=== PATIENT | male | born 1955 | race Caucasian/White ===

== ENCOUNTER 2020-12-03 11:04 | Observation (INO) | payer MEDICARE, SELFPAY ==
[2020-12-03] VITALS (10 sets, daily range): BP systolic 118–164; BP diastolic 65–98; PULSE 78–89; RESP 16–20; TEMP 36.3–36.6; O2SAT 95–100
--- NOTE | ~2020-12-03 | XR_ITS ---
EXAMINATION: XR chest 1V portable DATE: 12/03/2020 13:39 INDICATION: Seizure. Confusion TECHNIQUE: frontal view of the chest was obtained. COMPARISON: None FINDINGS: The lungs are clear with no focal airspace opacities, pulmonary edema, pleural effusion or pneumothor ax. The cardiomediastinal silhouette is normal. Mild thoracic spondylosis. Calcified splenic nodule c onsistent with old granulomatous disease. IMPRESSION: 1. No acute cardiopulmonary disease. Reviewed, dictated and finalized at location A. SERVICE ADVISOR
--- NOTE | ~2020-12-03 | CT_ITS ---
EXAMINATION: CT brain wo con DATE: 12/03/2020 13:55 INDICATION: Seizure TECHNIQUE: Computed tomography (CT) of the head was performed without intravenous contrast. Sagittal and coronal reconstructions were performed. The mA was adjusted according to patient size. Iterative reconstruction technique was employed. The dose-length product was 1362.00 mGy-cm. COMPARISON: head CT dated 01/11/2012 FINDINGS: No acute intracranial hemorrhage, acute infarction or abnormal extra axial fluid collection. Ventricl es are normal and symmetric. No mass/mass effect. Mild intracranial calcified cerebral atherosclerosi s is noted. The orbits, paranasal sinuses and mastoid air cells are normal. IMPRESSION: 1. No acute intracranial process. Reviewed, dictated and finalized at location A. EILLANCE AGENT
--- NOTE | ~2020-12-03 | US_ITS ---
EXAMINATION: US right upper quadrant DATE: 12/04/2020 11:06 INDICATION: Elevated liver enzymes. TECHNIQUE: Multiple grayscale and Doppler ultrasound images of the abdomen were obtained. COMPARISON: CT abdomen and pelvis dated 07/26/2017 FINDINGS: The region of the pancreas is obscured. Liver has normal contour, with a smooth surface. There is inc reased parenchymal echogenicity and coarsened echotexture consistent with diffuse hepatic steatosis. No liver lesion identified. No intrahepatic biliary duct dilation suspected. Portal venous flow was seen in the hepatopetal, normal direction and has normal Doppler waveform. The gallbladder is normal in appearance. There is no cholelithiasis. The common bile duct measures 3 mm, which is normal. Sono graphic Mcrae sign was reported as negative by the box order person.Visualized proximal inferior vena cav a is normal. The visualized portion of the right kidney demonstrate normal contour and echogenicity w ith no hydronephrosis. IMPRESSION: 1. Diffuse hepatic steatosis. Reviewed, dictated and finalized at location A. BOARD ERECTOR
--- NOTE | 2020-12-03 11:14 | ECG_ITS ---
Measurements Intervals [place] Rate: 85 P: 29 MA: 165 QRS: 46 QRSD: 104 T: 37 QT: 389 QTc: 464 Interpretive Statements SINUS RHYTHM EARLY PRECORDIAL R/S TRANSITION MINIMAL Q WAVES- INFERIOR LEADS BASELINE ARTIFACT- I, III, AVF, V1 BORDERLINE ECG Electronically Signed On 12-03-2020 16:03:57 [employer] by Blair Hutson D.O.
--- NOTE | 2020-12-03 11:22 | PC.NURSE ---
INFORMED PT NEED URINE. PT STATES UNABLE TO VOID AT THIS TIME, STATES HE JUST URINATED. PT STATES BUT I CAN ORGASM. I CAN ORGASM WITHOUT GETTING AN ERECTION. REDIRECTED PT BEHAVIOR. REINFORCED NEED FOR URINE. PT VERBALIZES UNDERSTANDING. PT WILL TRY IN 10 MINUTES.
[2020-12-03 11:23] LABS: Glucose Point of Care 121 (65-105)
[2020-12-03 11:28] LABS: Basophils Absolute Auto 0.1 K/mm3 (0.0-0.1); Basophils Percent Auto 0.4 % (0.2-1.2); Hematocrit 45.3 % (42.0-52.0); Hemoglobin 15.3 g/dL (14.0-18.0); Immature Granulocyte Percent A 0.9 % (0-0.5); Lymphocytes Absolute Auto 1.56 K/mm3 (0.9-3.2); Lymphocytes Percent Auto 13.8 % (18.3-44.2); Mean Corpuscular HGB Conc 33.8 g/dl (32-36); Mean Corpuscular Hemoglobin 31.7 pg (26-34); Mean Platelet Volume 9.6 fl (7.4-10.4); Monocytes Absolute Auto 1.2 K/mm3 (0.1-0.6); Monocytes Percent Auto 10.2 % (2.6-8.5); Neutrophils Absolute Auto 8.5 K/mm3 (1.3-6.7); Neutrophils Percent Auto 74.7 % (45.5-73.1); Platelet Count Result 280 k/mm3 (150-375); Red Blood Count 4.82 M/mm3 (4.6-6.20); Red Cell Distribution Width 13.1 % (11.5-14.5); White Blood Count 11.3 K/mm3 (4.5-10.0)
[2020-12-03 11:37] LABS: INR 1.2; Prothrombin Time 15.8 Seconds (11.1-14.7)
[2020-12-03 11:41] LABS: Ammonia 80 umol/L (9-30); Ethanol < 10 mg/dL (<10)
[2020-12-03 11:53] LABS: Albumin Level 4.8 g/dL (3.5-5.1); Alkaline Phosphatase 68 U/L (38-126); Anion Gap 17 mmol/L (8-16); Aspartate Amino Transferase 152 U/L (17-59); Bilirubin,Total 0.9 mg/dL (0.2-1.3); Blood Urea Nitrogen 19 mg/dL (9-20); CRP 2.6 mg/dL (<1.0); Carbon Dioxide 15 mmol/L (22-30); Chloride 109 mmol/L (98-107); Estimated CRCL calculation 97 ml/min; Estimated Glomerular Filt Rate > 60; Glucose 123 mg/dL (75-110); Magnesium 2.9 mg/dL (1.6-2.3); Sodium 141 mmol/L (137-145)
[2020-12-03 11:57] LABS: Alanine Aminotransferase 47 U/L (4-50)
[2020-12-03 12:19] LABS: Creatine Kinase 5316 U/L (55-170)
[2020-12-03] MEDS: LORazepam INJ (*CRX) 2 MG/ML VIAL IV PUSH (12:37)
[2020-12-03] MEDS: SODIUM CHLORIDE 0.9% IV 1,000 ML 999 ML IV CONT ×2 (12:37→15:54)
--- NOTE | 2020-12-03 12:40 | ED.GENADULT ---
HPI - General Adult General Chief complaint: Neuro Symptoms/Deficit Stated complaint: neuro symptoms Time Seen by Provider: 12/03/20 11:06 Source: patient, family and EMS Mode of arrival: EMS History of Present Illness HPI narrative: patient is a 65 year old male with history bipolar , frantz who presents via EMS for evaluation of agitation and possible seizure. His states patient has not slept in 3 day. She reports he is extremely animated but he is not violent. She states today he had a seizure. Around 1030 am today, she states patient was standing up. He stopped talking and started making noises. She reports he started convulsing and when it stopped he fell backwards. His son was able to catch him before he fell to the ground. She reports he was snoring afterwards. She states patient has been off medication for bipolar for over 2 years . He was here at [facility] in 2018 for frantz . She states he stopped taking his medications shortly after that. Patient is unable to give history due to being manic. Initially he was in room by himself talking to himself. He will follow occasionaly demands. He has to be redirected to get name. Related Data Allergies Allergy/AdvReac Type Severity Reaction Status Date / Time aripiprazole Allergy Unknown Verified 07/26/17 20:57 Review of Systems Review of Systems: ROS unobtainable: Yes unobtainable due to mental status PMFSH Past Medical History Medical History (Updated 12/03/20 @ 15:37 by Marie Paz MD) Bipolar disorder, manic Family History Family History Father Family history of allergic disorder Carcinoma of colon Other Cerebrovascular accident Diabetes mellitus Social History Social History Smoking status: Never smoker Alcohol intake: current Exam Const: General: alert Other: oriented to person, anable to get straight answers HENMT: Head: normocephalic and atraumatic Face and sinus: face symmetric Mouth: Yes Normal oral and palatal mucosa present, Yes lip normal, Yes oropharynx normal and Yes moist mucous membranes Eyes: Pupils: Equal, round and reactive pupils present EOM: EOMs intact bilaterally Resp: Effort & Inspection: normal respiratory effort and no retractions Auscultation: clear to auscultation bilaterally Cardio: Rate: regular rate Rhythm: regular rhythm Heart sounds: no murmurs GI: GI Palp: Yes Soft to palpation, No Tenderness to palpation present (GI) and No Guarding due to palpation present (GI) Auscultation: normal bowel sounds Neuro: General: moves all extremities, no meningeal signs and CN's II-XI intact bilaterally Extrem: General: no pedal edema Psych: Speech and movement: Psychomotor agitation in speech present and Restless speech present Affect: Anxious affect present Thought process: Racing thoughts present Judgement: Fair judgement present (Psych) Course Reevaluation(s) Reevaluation #1: Patient presented agitate and restless. I was unable to talk to in room with patient because he started getting loud and beating on the bed. He states he has not slept in 3 days. He was given ativan 2 mg. He is sleeping. HE will wake up and answer but go back to sleep. Date: 12/03/20 Time: 15:34 Consultations Consultation #1: I Discussed with Dr. Blas that patient presents manic and had a seizure home. He agrees to consult. He states once patient wakes up can Start on zyprexa 2.5 . Date: 12/03/20 Time: 15:31 Consultation #2: I Discussed case with Alexandrea Hernandez who accepts patient to [facility]. I Discussed consultation with Alexandrea Date: 12/03/20 Time: 15:33 Vital Signs Vital signs: Vital Signs Temperature 97.9 F 12/03/20 10:47 Pulse Rate 87 12/03/20 10:47 Respiratory Rate 20 12/03/20 10:47 Blood Pressure 118/80 12/03/20 10:47 Pulse Oximetry 96 12/03/20 10:47 Temperature 97.4 F L 12/03/20 16:30 Pulse Rate 85 12/03/20 1
[2020-12-03 12:47] LABS: Lactic Acid Reflex 1.9 mmol/L (0.7-2.1)
[2020-12-03 13:44] LABS: Add Urine Microscopic? YES; Appearance Urine Cloudy (Clear); Bilirubin Urine Negative (Negative); Blood Urine 3+ (Negative); Color Urine Yellow (Yellow); Glucose Urine UA Negative (Negative); Ketones Urine 1+ mg/dL (Negative); Leukocyte Esterase Ur Negative LEU/UL (Negative); Mucus Urine Rare /lpf; Nitrate Urine Negative (Negative); Protein Urine 2+ mg/dL (Negative); Specific Grav Ur 1.025 (1.001-1.035); Urobilinogen Urine Negative mg/dL (<2.0)
[2020-12-03 13:59] LABS: Amphetamine Screen Urine Negative (Negative); Barbiturate Screen Urine Negative (Negative); Benzodiazepines Screen Urine Negative (Negative); Cannabinoid Screen Urine Positive (Negative); Cocaine Screen Urine Negative (Negative); Methadone Screen Urine Negative (Negative); Opiate Screen Urine Negative (Negative); Phencyclidine Screen Urine Negative (Negative)
[2020-12-03 14:24] LABS: Alveolar/Arterial O2 Gradient 19.7 mmHg; Base Excess ABG -6.2 mEq/l (+/-2.0); Carboxyhemoglobin 0.6 % THb (0-2.0); Device ROOM AIR; Fractional Inspired Oxygen 21 %; HCO3 ABG 18.4 mEq/l (22.0-26.0); Methemoglobin ABG 0.3 %THb (0-1.5); Modified Allen's Test Pass; Oxygen Content ABG 19.6 %vol (16.0-22.0); Oxygen Saturation ABG 96.5 % (95.0-100.0); PCO2 ABG 34.1 mmHg (35.0-45.0); PO2 ABG 89.2 mmHg (80.0-100.0); PO2 FiO2 Ratio Arterial Blood 4.25 %; Reduced Hemoglobin 4.1 %THb (0-5.0); Site Drawn RIGHT RADIAL; Total Hemoglobin 14.6 g/dL (12.0-18.0)
--- NOTE | 2020-12-03 17:15 | ADMGEN ---
This patient, Edwin Bunch, was admitted to [facility] Surg Room 322-01. Patient/family oriented to hospital policies and general routines including ID bracelet, bed and alarms, visiting hours, pain management, procedures, bathroom and other care routines, personal items, smoking policy, room service/diet, and visiting hours. Information on how to activate the Rapid Response Team has been discussed. Patient/Family are encouraged to report perceived risks to care and to ask questions if they do not understand what they are told or what they should do.
[2020-12-03] MEDS: SODIUM CHLORIDE 0.9% IV 1,000 ML 200 ML IV CONT ×2 (17:36→22:22)
--- NOTE | 2020-12-03 20:56 | PM.IMHP ---
H&P: HPI History of Present Illness Date/Time: 12/03/20 20:56 Chief Complaint: Manic episode and possible seizure Narrative: Edwin Bunch is a 65 year old male who has a history of bipolar disorder. The patient is not on any current medications. The was with the patient earlier. The patient presented with manic symptoms. A possible seizure. Patient has not slept in 3 days he has been extremely agitated but not violent. He has no history of any seizures. But approximately on 10:00 a.m. today the stated the when the patient was standing up he stop talking anion started making some noises and had some convulsions and then he stopped and fell backwards. His reported that the son caught him before he was able to fall to the ground. He was making some snoring noises afterwards. Patient has been off of his psychiatric medications for 2 years. The patient had been talking to God and been talking to people that are not there. The patient had been here at [facility] 2018 for in a manic event. The patient stop taking his medication shortly after that. I was not able to get any information from the patient as he has been medicated with Ativan. He had been talking to himself in the room previously when he was in the emergency room. He was not following any demands. He had to be redirected to get his name. The patient is somnolent at this time but he is following commands for me. It looks like when the patient was here on February 20, 2018 he had been having an episode for 2 days where he did not sleep or sit still and could get his thoughts straight. The patient was sent to a psychiatric unit at that time. The patient was given Ativan IV push and IV fluids at this point. The patient is not eating his food unable to obtain information from the patient. Neurology has been consulted for possible seizure. The patient was not sent to psych unit due to possible seizure. Patient should be transferred to psychiatric unit once he is cleared of any seizure activity. Was noted to be 5316. CRP 2.6 AST 152 magnesium 2.9 Review of Systems Review of Systems: ROS unobtainable: Yes unobtainable due to mental status PMFSH Past Medical History Medical History Bipolar disorder, manic Family History Family History Father Family history of allergic disorder Carcinoma of colon Other Cerebrovascular accident Diabetes mellitus Social History Social History (Updated 12/03/20 @ 21:09 by Alexandrea Hernandez NP) Social History: The patient is and lives with his . Who was found to be positive for cannabis today. He is listed as a full code. The patient tells me that he has had several children up to 6. The patient is listed as disabled. 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 Smoking status: Heavy tobacco smoker Tobacco type: cigars Alcohol intake: current Drinks per week: 2 Substance use: current Substance use type: marijuana Last use: unknown Gender identity (if verbalized by the patient): Male Spiritual care concerns: No Meds Home Medications and Allergies Home Medications Medication Instructions Recorded Confirmed Type No Home Medications 12/03/20 12/03/20 History Allergies Allergy/AdvReac Type Severity Reaction Status Date / Time aripiprazole Allergy Unknown Back Pain Verified 12/03/20 18:26 Vital Signs Vital Signs - 24 hr 12/03/20 10:47 12/03/20 11:25 12/03/20 13:00 Temperature 36.6 C Pulse Rate 87 82 81 Respiratory Rate 20 20 20 Blood Pressure 118/80 125/98 H 134/84 Pulse Oximetry 96 100 99 12/03/20 14:00 12/03/20 15:12 12/03/20 16:13 Temperature Pulse Rate 84 87 89 Respiratory Rate 20 20 20 Blood Pressure 157/76 H 164/86 H 164/86 H Pulse Oximetry 99 96 97 12/03/20 16:30 12/03/20 17:30 Temperature 36.3 C L Pulse Rate 85 85 Respirat
[2020-12-03 22:03] LABS: Glucose Point of Care 93 (65-105)
--- NOTE | 2020-12-03 23:41 | PC.NURSE ---
PT NOTED TO BE AWAKE, ALERT, TALKING ON THE PHONE WITH FAMILY AT LENGTH. CALM, CONVERSANT. APPEARS LUCID AND APPROPRIATE AT PRESENT.
[2020-12-04] VITALS (7 sets, daily range): BP systolic 126–151; BP diastolic 59–85; PULSE 62–83; RESP 16–20; TEMP 36.3–36.8; O2SAT 92–98
[2020-12-04] MEDS: HYDROcodone/acetaminophen (*CRX) 5-325 MG TABLET 1 TAB PO (01:46)
[2020-12-04] MEDS: SODIUM CHLORIDE 0.9% IV 1,000 ML 200 ML IV CONT ×3 (03:01→13:42)
[2020-12-04] MEDS: LORazepam INJ (*CRX) 2 MG/ML VIAL 1 MG IV PUSH ×2 (03:01→08:48)
[2020-12-04 06:38] LABS: Basophils Percent Auto 0.5 % (0.2-1.2); Eosinophils Absolute Auto 0.1 K/mm3 (0-0.3); Eosinophils Percent Auto 0.8 % (0-4.4); Hematocrit 37.7 % (42.0-52.0); Hemoglobin 12.7 g/dL (14.0-18.0); Immature Granulocyte Absolute 0.04 K/mm3 (0.00-0.031); Immature Granulocyte Percent A 0.5 % (0-0.5); Lymphocytes Absolute Auto 2.31 K/mm3 (0.9-3.2); Lymphocytes Percent Auto 27.5 % (18.3-44.2); Mean Corpuscular HGB Conc 33.7 g/dl (32-36); Mean Corpuscular Hemoglobin 31.4 pg (26-34); Mean Corpuscular Volume 93.3 fl (80-100); Mean Platelet Volume 9.4 fl (7.4-10.4); Monocytes Absolute Auto 0.8 K/mm3 (0.1-0.6); Monocytes Percent Auto 9.7 % (2.6-8.5); Neutrophils Absolute Auto 5.1 K/mm3 (1.3-6.7); Platelet Count Result 198 k/mm3 (150-375); Red Blood Count 4.04 M/mm3 (4.6-6.20); Red Cell Distribution Width 13.2 % (11.5-14.5); White Blood Count 8.4 K/mm3 (4.5-10.0)
[2020-12-04 06:49] LABS: Ammonia < 9 umol/L (9-30)
[2020-12-04 07:07] LABS: Alanine Aminotransferase 39 U/L (4-50); Albumin Level 3.1 g/dL (3.5-5.1); Alkaline Phosphatase 55 U/L (38-126); Anion Gap -2 mmol/L (8-16); Aspartate Amino Transferase 115 U/L (17-59); Bilirubin,Total 0.6 mg/dL (0.2-1.3); Blood Urea Nitrogen 13 mg/dL (9-20); Calcium 7.9 mg/dL (8.4-10.2); Carbon Dioxide 23 mmol/L (22-30); Chloride 113 mmol/L (98-107); Creatine Kinase 3083 U/L (55-170); Estimated CRCL calculation 142 ml/min; Estimated Glomerular Filt Rate > 60; Glucose 102 mg/dL (75-110); Potassium 3.4 mmol/L (3.4-5.0); Sodium 134 mmol/L (137-145)
[2020-12-04 08:06] LABS: Magnesium 2.2 mg/dL (1.6-2.3)
[2020-12-04 08:11] LABS: Hepatitis B Surface Antigen Negative (Negative)
[2020-12-04 08:17] LABS: HAV RESULT Negative (Negative); Hepatitis B Core IgM Result Negative (Negative)
[2020-12-04 08:29] LABS: Hepatitis C Virus Antibody Negative (Negative)
[2020-12-04] MEDS: LACTULOSE 20 GM/30 ML UDC PO (08:48)
[2020-12-04] MEDS: POTASSIUM CHLORIDE 20 MEQ TABLET PO (08:48)
--- NOTE | 2020-12-04 14:12 | PM.IMPN ---
Progress Note: A&P Assessment and Plan (1) Altered mood associated with frantz: Code(s): F30.9 - Manic episode, unspecified Status: Acute Assessment and Plan: Patient has diagnoses of bipolar disorder and schizoaffective disorder. In the last 3 days he has not slept or had much to eat or drink, and his has noted him to be speaking to himself seeming to have auditory hallucinations. He describes he has not taken any antipsychotic medications since 2018 which is around the time of his last manic episode. His mood appears to be much more stable today. Initially it was felt he may need to be transferred to inpatient psych however now he appears to be more stable today. Awaiting EEG tomorrow and may be stable for discharge home, monitor overnight. (2) Seizure: Code(s): R56.9 - Unspecified convulsions Status: Acute Assessment and Plan: Patient has no history of having seizure disorder. History is questionable for seizure activity yesterday witnessed by patient's . Urine drug screen positive only for marijuana. Awaiting EEG in AM, neurology consultation prior to discharge. Continue seizure precautions. PRN Ativan is ordered. (3) Rhabdomyolysis: Qualifiers: Rhabdomyolysis type: non-traumatic Qualified Code(s): M62.82 - Rhabdomyolysis Code(s): M62.82 - Rhabdomyolysis Status: Acute Assessment and Plan: May be related to questionable seizure activity, extended period without sleep/oral intake? CK 5316 on arrival, improved to 3083 IV hydration. IV fluids and monitor CK in AM. (4) Elevated liver enzymes: Code(s): R74.8 - Abnormal levels of other serum enzymes Status: Acute Assessment and Plan: To 152 on arrival, improved to 115 today possible contributing factors include acute rhabdo, diffuse hepatic steatosis noted on ultrasound. Hepatitis panel is negative. Monitor LFTs in AM. Subjective Date/time seen: 12/04/20 1330 Interval history: Mr. Bunch is a 65yo M with bipolar disorder and schizoaffective disorder who presented to the ED during a manic episode due to possible seizure activity. It is documented that the patient's witnessed him standing up, stopped talking, began to make strange noises, then fell backwards and had a 'shaking' episode. Patient tells me he does not recall this happening. He knows he has been in a manic episode for about the last three days. Tells me he has not slept or had much to eat or drink in 3 days. It is reported that witnessed him speaking in two different voices, told her he was talking to God. He tells me he does not remember this and he does not recall hearing any voices or other auditory or visual hallucinations. He denies any thoughts of harming himself or others. Tells me he has a manic episode every 'few years' and has not been on antipsychotic medications since 2018, does not follow regularly with psych or PCP. He denies chest pain, shortness of breath, nausea or vomiting. He offers no complaints other than feeling tired. Review of Systems Review of Systems: All systems reviewed & are unremarkable except as noted in HPI and below Exam Narrative: Exam Narrative: General: Male resting comfortably sitting up eating lunch in bed in no acute distress. HEENT: Normocephalic, EOMI, oral mucosa moist. Cardiovascular: Rate and rhythm are regular. Respiratory: Lungs clear to auscultation bilaterally. Respirations even and non-labored. Tolerating room air. Abdomen: Soft, non-tender, non-distended, bowel sounds present. Extremities: Peripheral pulses intact. No edema. Skin is dry. Neuro: Alert and oriented x4. Answering all questions appropriately. No focal neurological deficits. Speech is clear. Upper and lower extremity strength a
[2020-12-04] MEDS: SODIUM CHLORIDE 0.9% IV 1,000 ML 150 ML IV CONT (20:33)
[2020-12-05] MEDS: SODIUM CHLORIDE 0.9% IV 1,000 ML 150 ML IV CONT ×2 (03:12→07:20)
[2020-12-05 05:41] VITALS: BP 146/74; PULSE 57; RESP 18; TEMP 36.3; O2SAT 94
[2020-12-05 06:54] LABS: Basophils Percent Auto 0.4 % (0.2-1.2); Eosinophils Absolute Auto 0.1 K/mm3 (0-0.3); Eosinophils Percent Auto 0.8 % (0-4.4); Hematocrit 39.8 % (42.0-52.0); Hemoglobin 13.5 g/dL (14.0-18.0); Immature Granulocyte Absolute 0.08 K/mm3 (0.00-0.031); Immature Granulocyte Percent A 0.9 % (0-0.5); Lymphocytes Absolute Auto 1.61 K/mm3 (0.9-3.2); Lymphocytes Percent Auto 17.5 % (18.3-44.2); Mean Corpuscular HGB Conc 33.9 g/dl (32-36); Mean Corpuscular Volume 91.5 fl (80-100); Mean Platelet Volume 9.7 fl (7.4-10.4); Monocytes Absolute Auto 0.8 K/mm3 (0.1-0.6); Monocytes Percent Auto 8.5 % (2.6-8.5); Neutrophils Absolute Auto 6.6 K/mm3 (1.3-6.7); Neutrophils Percent Auto 71.9 % (45.5-73.1); Platelet Count Result 215 k/mm3 (150-375); Red Blood Count 4.35 M/mm3 (4.6-6.20); Red Cell Distribution Width 12.8 % (11.5-14.5); White Blood Count 9.2 K/mm3 (4.5-10.0)
[2020-12-05 07:34] LABS: Alanine Aminotransferase 46 U/L (4-50); Albumin Level 3.4 g/dL (3.5-5.1); Alkaline Phosphatase 56 U/L (38-126); Anion Gap 1 mmol/L (8-16); Aspartate Amino Transferase 96 U/L (17-59); Bilirubin,Total 0.6 mg/dL (0.2-1.3); Blood Urea Nitrogen 6 mg/dL (9-20); Calcium 8.3 mg/dL (8.4-10.2); Carbon Dioxide 28 mmol/L (22-30); Chloride 109 mmol/L (98-107); Creatine Kinase 1361 U/L (55-170); Estimated CRCL calculation 142 ml/min; Estimated Glomerular Filt Rate > 60; Glucose 99 mg/dL (75-110); Potassium 4.1 mmol/L (3.4-5.0); Sodium 138 mmol/L (137-145)
--- NOTE | 2020-12-05 10:55 | WPDNEURCNPN ---
Assessment and Plan Assessment and plan (1) Altered mood associated with frantz: Code(s): F30.9 - Manic episode, unspecified Status: Acute (2) Elevated liver enzymes: Code(s): R74.8 - Abnormal levels of other serum enzymes Status: Acute (3) Rhabdomyolysis: Qualifiers: Rhabdomyolysis type: non-traumatic Qualified Code(s): M62.82 - Rhabdomyolysis Code(s): M62.82 - Rhabdomyolysis Status: Acute (4) Seizure: Code(s): R56.9 - Unspecified convulsions Status: Acute (5) Bipolar disorder: Code(s): F31.9 - Bipolar disorder, unspecified Status: Acute Additional Plan Considering the history EEG will be obtained Consult date: 12/05/20 Time Seen: 09:00 HPI: Edwin Bunch is a 65 year old male 65 years old has been admitted to the hospital for the possibility of seizure in addition carries the diagnosis of bipolar disorder though not taking any current medication patient reportedly had not slept for 3 days was extremely agitated though not while aunt. On the day of admission when he stood up he started making noises and possibly had some convulsion and fell backwards though at time his son caught him before he fell to the ground he was definitely making snoring noises patient has been off the anti psychiatric medication for almost 2 years and has been intermittently talking to he had been at [facility] in 2018 for manic event he was not able to follow any verbal instruction we were consulted for the possibility of the seizure, patient is a heavy tobacco smoker drinks alcohol 2 drinks per week , reportedly allergic to dairy papers old. Evaluation up until now includes normal CBC fairly normal BMP elevated CPK of 3083 which has come down to 1361 and normal UA in addition to toxicology screen positive only for cannabinoids and also hepatitis screen is negative for AB and C head CT scan normal. Review of Systems Review of Systems: All systems reviewed & are unremarkable except as noted in HPI and below PMFSH Past Medical History Medical History Bipolar disorder, manic Family History Family History Father Family history of allergic disorder Carcinoma of colon Other Cerebrovascular accident Diabetes mellitus Social History Social History Social History: The patient is and lives with his . Who was found to be positive for cannabis today. He is listed as a full code. The patient tells me that he has had several children up to 6. The patient is listed as disabled. 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 Smoking status: Heavy tobacco smoker Tobacco type: cigars Alcohol intake: current Drinks per week: 2 Substance use: current Substance use type: marijuana Last use: unknown Gender identity (if verbalized by the patient): Male Spiritual care concerns: No Meds Home Medications and Allergies Home Medications Medication Instructions Recorded Confirmed Type No Home Medications 12/03/20 12/03/20 History Allergies Allergy/AdvReac Type Severity Reaction Status Date / Time aripiprazole Allergy Unknown Back Pain Verified 12/03/20 18:26 Vital Signs Vital Signs - 24 hr 12/04/20 14:00 12/04/20 20:00 12/04/20 21:58 Temperature 36.3 C L 36.8 C Pulse Rate 73 66 Respiratory Rate 20 18 Blood Pressure 126/59 L 151/85 H Pulse Oximetry 98 92 92 12/05/20 05:41 Temperature 36.3 C L Pulse Rate 57 L Respiratory Rate 18 Blood Pressure 146/74 H Pulse Oximetry 94 Exam Const: General: cooperative, healthy appearing, comfortable, alert and awake Nutritional Appearance: overweight Orientation/consciousness: oriented to person, oriented to place, oriented to time and patient oriented x3 HENMT: General nose exam: Normal external nose present Face and s
--- NOTE | 2020-12-05 11:40 | WPDNEUROLOGY ---
Neurology EEG Report General Information Date of Study: 12/05/20 TEST eeg DIAGNOSIS Possible seizure activity CONDITION OF RECORDING awake drowsy and sleep EEG NUMBER 21-34 CLINICAL HISTORY patient has history of bipolar disorder and has been off his medication for a while. Family reported he had a seizure 2 days ago EEG DESCRIPTION basic resting occipital free cyst of large amount of low to medium voltage 9 to 11 hertz per 2nd alpha admixed low-voltage 15 to 18 hertz per 2nd beta. Bilateral symmetrical sleep activity seen during sleep with EKG artifact. Non paroxysmal. Nonfocal. Nonlateralizing. IMPRESSION No significant abnormalities noted
--- NOTE | 2020-12-05 12:25 | WPDNEUROPN ---
Progress Note: A&P Assessment and Plan (1) Altered mood associated with frantz: Code(s): F30.9 - Manic episode, unspecified Status: Acute (2) Seizure: Code(s): R56.9 - Unspecified convulsions Status: Acute (3) Bipolar disorder: Code(s): F31.9 - Bipolar disorder, unspecified Status: Acute Additional Plan state with normal EEG Review of Systems Review of Systems: All systems reviewed & are unremarkable except as noted in HPI and below Exam Const: General: cooperative and no acute distress Nutritional Appearance: overweight HENMT: Face and sinus: normal facial exam Mouth: Yes Normal oral and palatal mucosa present Neck: Neck: full ROM Resp: Effort & Inspection: normal respiratory effort Auscultation: clear to auscultation bilaterally Neuro: Cranial nerves: Yes CN's II-XII intact bilaterally Speech: Other speech findings present (Neuro) Gait exam (Neuro): Unable to assess gait Motor exam (neuro): 5/5 motor strength present throughout Sensory Exam: normal sensation Deep tendon reflexes (DTR's): Right triceps reflex intensity grade: 1+, Left triceps reflex intensity grade: 1+, Rt Biceps (C5, C6): 1+, Left biceps reflex intensity grade: 1+, Right brachioradialis reflex intensity grade: 1+, Left brachioradialis reflex intensity grade: 1+, Right patellar reflex intensity grade: 1+, Left patellar reflex intensity grade: 1+, Right ankle reflex intensity grade: 1+ and Left ankle reflex intensity grade: 1+ Plantar Reflex Responses: downgoing: bilateral Psych: Speech and movement: Slowed speech present (Psych) Affect: Labile affect present Attitude: Guarded attititude/behavior present Thought process: Circumstantial thought process present Thought content: Yes Depressive thoughts present Insight: Poor insight present (Psych) Judgement: Poor judgement present (Psych) Objective Data Vital Signs Vital Signs: Vital Signs - 24 hr 12/04/20 14:00 12/04/20 20:00 12/04/20 21:58 Temperature 36.3 C L 36.8 C Pulse Rate 73 66 Respiratory Rate 20 18 Blood Pressure 126/59 L 151/85 H Pulse Oximetry 98 92 92 12/05/20 05:41 Temperature 36.3 C L Pulse Rate 57 L Respiratory Rate 18 Blood Pressure 146/74 H Pulse Oximetry 94 Intake/Output Intake/Output: Intake & Output 01/29/21 01/30/21 01/31/21 02/01/21 23:59 23:59 23:59 23:59 Intake Total 3000 5740 2610 Output Total 75 800 2100 Balance 2925 4940 510 Meds/Results Medications: Active Medications Generic Name Dose Route Start Last Admin Trade Name Freq PRN Reason Stop Dose Admin Acetaminophen 650 mg 12/04/20 07:55 Acetaminophen 325 Mg Tablet PO Q4H PRN Pain or Fever Sodium Chloride 1,000 mls @ 150 mls/hr 12/03/20 15:25 12/05/20 07:20 Normal Saline Iv IV CONT 150 mls/hr .[id number] VICENTA Administration Lorazepam 1 mg 12/03/20 21:01 12/04/20 08:48 Lorazepam Inj (*Crx) 2 Mg/Ml Vial IV PUSH 1 mg Q6H PRN Administration Anxiety Ondansetron HCl 4 mg 12/03/20 15:25 Ondansetron Inj 4 Mg/2 Ml Vial IV PUSH Q4H PRN Nausea Radiology Results: ITS Impressions Chest X-Ray 12/03/20 13:50 IMPRESSION: 1. No acute cardiopulmonary disease. Head CT 12/03/20 13:59 IMPRESSION: 1. No acute intracranial process. Upper Quadrant Ultrasound 12/04/20 12:23 IMPRESSION: 1. Diffuse hepatic steatosis. Labs Labs: Laboratory Results - last 24 hr 12/05/20 12/05/20 06:30 06:30 WBC 9.2 RBC 4.35 L Hgb 13.5 L Hct 39.8 L MCV 91.5 MCH 31.0 MCHC 33.9 RDW 12.8 Plt Count 215 MPV 9.7 Immature Gran % (Auto) 0.9 H Neut % (Auto) 71.9 Lymph % (Auto) 17.5 L [place] % (Auto) 8.5 Eos % (Auto) 0.8 Baso % (Auto) 0.4 Lymph # (Auto) 1.61 [place] # (Auto) 0.8 H Eos # (Auto) 0.1 Baso # (Auto) 0.0 Abs Immat Gran (auto) 0.08 H Absolute Neuts (auto) 6.6 Absolute Nucleated RBC 0.0 Nucleated RBC % 0.0 Sodium 138 [place]
--- NOTE | 2020-12-05 13:38 | PM.DS ---
DS: Admitting Diagnosis Admitting Diagnosis Admitting Diagnosis: Possible seizure activity, frantz DS: Discharge Diagnosis Discharge Diagnosis (1) Altered mood associated with frantz: Code(s): F30.9 - Manic episode, unspecified Status: Acute Assessment and Plan: Date of Admission 12/03/20 Date of Discharge/DOS 12/05/20 Mr. Bunch is a 65yo M with history of bipolar disorder, schizoaffective disorder who presented to the ED for evaluation after his witness what appeared to be seizure-like activity. Patient was demonstrating behaviors consistent with a manic episode and had not slept, ate or drank in 3 days. See details below. He was evaluated by neurology, Dr Blas. EEG was unremarkable but does not rule out seizure activity prior to admission. Dr Blas recommended starting lamictal for seizure prophylaxis going forward. Patient was able to rest, eat and drink once admitted and his mood was stable without frantz or hallucinations for over 24 hours. CK was elevated, unclear if this was related to seizure activity or muscle breakdown from poor nutrition and no sleep. CK improved with IV hydration and further oral intake was encouraged, patient verbalized understanding. He does not take any antipsychotic medications nor does he follow with psychiatry or therapy, and he continues to refuse such at this time. He is clinically improved and is hemodynamically stable for discharge on 12/05/20 with instructions to follow up with PCP. ([facility], contacted and he has seen Dr Hugo in 2018). Patient has diagnoses of bipolar disorder and schizoaffective disorder. In the last 3 days he has not slept or had much to eat or drink, and his has noted him to be speaking to himself seeming to have auditory hallucinations. He describes he has not taken any antipsychotic medications since 2018 which is around the time of his last manic episode. His mood appears to be much more stable today. Initially it was felt he may need to be transferred to inpatient psych however now he appears to be more stable today. (2) Seizure: Code(s): R56.9 - Unspecified convulsions Status: Acute Assessment and Plan: Patient has no history of having seizure disorder. History is questionable for seizure activity yesterday witnessed by patient's . Urine drug screen positive only for marijuana. No further seizure activity here. EEG unremarkable but does not rule out previous seizure activity prior to admission. Neurology recommends starting lamictal. (3) Rhabdomyolysis: Qualifiers: Rhabdomyolysis type: non-traumatic Qualified Code(s): M62.82 - Rhabdomyolysis Code(s): M62.82 - Rhabdomyolysis Status: Acute Assessment and Plan: May be related to questionable seizure activity, extended period without sleep/oral intake? CK elevated on arrival, improved with IV hydration. Encouraged ongoing oral intake. (4) Elevated liver enzymes: Code(s): R74.8 - Abnormal levels of other serum enzymes Status: Acute Assessment and Plan: Mild and improved with IV hydration as CK trends down. Contributing factors include acute rhabdo, diffuse hepatic steatosis noted on ultrasound. Hepatitis panel is negative. DS: Summary Hospital Course Hospital Course: See above Time Spent with Patient Time attestation: Total time spent providing and/or coordinating discharge services: 40 minutes Exam Narrative: Exam Narrative: General: Male resting comfortably sitting up eating lunch in bed in no acute distress. HEENT: Normocephalic, EOMI, oral mucosa moist. Cardiovascular: Rate and rhythm are regular. Respiratory: Lungs clear to auscultation bilaterally. Respirations even and non-labored. Gregorio
[2020-12-05 14:00] VITALS: BP 135/47; PULSE 69; RESP 18; TEMP 36.6; O2SAT 95
[2020-12-07 09:21] LABS: Myoglobin, Urine <27 mcg/L (<28)
== END 2020-12-05 16:27 | disposition home or self-care (01) ==
LOC: ANHED 15:38 → ANH3MEDSUR 15:49
PROVIDERS: Nurse Practitioner; Physician Assistant; Admitting Provider Internal Medicine; Emergency Provider General Practice; Visit Provider Family Medicine
DX: F31.9 Bipolar disorder, unspecified (principal); R56.9 Unspecified convulsions; M62.82 Rhabdomyolysis; F25.9 Schizoaffective disorder, unspecified; F12.90 Cannabis use, unspecified, uncomplicated; F17.290 Nicotine dependence, other tobacco product, uncomplicated; K76.0 Fatty (change of) liver, not elsewhere classified; R74.8 Abnormal levels of other serum enzymes; R94.5 Abnormal results of liver function studies
CPT/HCPCS: 36415; 36600; 51701; 70450; 71045; 76705; 80053; 80074; 80307; 81001; 82140; 82375; 82550; 82805; 82948; 83050; 83605; 83735; 83874; 85025; 85610; 85730; 86140; 93005; 95816; 96361; 96374; 96376; 99285; A9270; G0378; J2060; J7030